=== PATIENT | male | born 1985 ===

== ENCOUNTER 2021-04-12 21:42 | Emergency (ER) | payer SELFPAY ==
[2021-04-12 21:59] VITALS: BP 120/69; PULSE 58; RESP 16; TEMP 98
--- NOTE | 2021-04-12 23:19 | ED ---
Recheck HPI - General Chief Complaint: Recheck/Abnormal Lab/Rx Stated Complaint: Wants covid test Time Seen by Provider: 04/12/21 23:05 Source: patient, RN notes reviewed Mode of arrival: ambulatory - History of Present Illness Initial Comments: Patient is a 35-year-old male that presents to the emergency department needing a Covid test to return to [place]. He denied any cough, congestion, shortness of breath, nausea vomiting diarrhea. He was a well-appearing 35-year-old male that was well-hydrated in no apparent distress or pain while sitting up in bed during the exam interview. He denied chest pain shortness breath headache nausea vomiting diarrhea constipation fever fatigue chills. - Related Data Allergies Allergy/AdvReac Type Severity Reaction Status Date / Time No Known Allergies Allergy Verified 04/12/21 21:59 Review of Systems ROS Statement: Those systems with pertinent positive or pertinent negative responses have been documented in the HPI. ROS Other: All systems not noted in ROS Statement are negative. Past Medical History Past Medical History: No Reported History History of Any Multi-Drug Resistant Organisms: None Reported Past Surgical History: No Surgical Hx Reported Smoking Status: Never smoker Past Alcohol Use History: None Reported Past Drug Use History: None Reported General Exam General appearance: alert, in no apparent distress Head exam: Present: atraumatic, normocephalic, normal inspection Eye exam: Present: normal appearance, PERRL, EOMI. Absent: scleral icterus, conjunctival injection, periorbital swelling Neck exam: Present: normal inspection Respiratory exam: Present: normal lung sounds bilaterally. Absent: respiratory distress, wheezes, rales, rhonchi, stridor Cardiovascular Exam: Present: regular rate, normal rhythm, normal heart sounds. Absent: systolic murmur, diastolic murmur, rubs, gallop, clicks Extremities exam: Present: normal inspection, full ROM, normal capillary refill. Absent: tenderness, pedal edema, joint swelling, calf tenderness Neurological exam: Present: alert, oriented X3 Psychiatric exam: Present: normal affect, normal mood Skin exam: Present: warm, dry, intact, normal color. Absent: rash Course Vital Signs 04/12/21 21:56 Temperature 98.0 F Pulse Rate 58 L Respiratory 16 Rate Blood Pressure 120/69 O2 Sat by Pulse 98 Oximetry Medical Decision Making - Medical Decision Making 35-year-old male needing a Covid test to return to [place]. Covid test ordered. Covid test negative. Case discussed with Dr. Wilkinson, patient can discharge home with follow-up to the primary care. - Lab Data Lab Results 04/12/21 Range/Units 22:04 Coronavirus (PCR) Not Detected (Not Detectd) Disposition Clinical Impression: Encounter for screening for COVID-19 Disposition: HOME SELF-CARE Condition: Stable Instructions (If sedation given, give patient instructions): Coronavirus Disease 2019 (COVID-19) Additional Instructions: Please return to the Emergency Department if symptoms worsen or any other concerns. Follow-up with primary care as needed. Is patient prescribed a controlled substance at d/c from ED?: No Referrals: None,Stated [Primary Care Provider] - 1-2 days Time of Disposition: 23:18
== END 2021-04-12 23:25 | disposition home or self-care (01) ==
LOC: EC 21:42
DX: Z11.52 Encounter for screening for COVID-19 (principal); Z20.822 Contact with and (suspected) exposure to COVID-19
CPT/HCPCS: 87635; 99282